=== PATIENT | male | born 1950 | race Caucasian/White ===

== ENCOUNTER 2024-01-13 03:13 | Inpatient (IN) | payer BC ==
[2024-01-13] MEDS ORDERED: NITROGLYCERIN SL TABS 0.4 MG TAB SUBLINGUAL PRN ×2 (03:21→10:39)
--- NOTE | 2024-01-13 03:25 | ED ---
Chest Pain HPI - General Chief Complaint: Chest Pain Stated Complaint: Chest pain Time Seen by Provider: 01/13/24 03:15 Source: patient, EMS, RN notes reviewed, old records reviewed Mode of arrival: EMS Limitations: no limitations - History of Present Illness Initial Comments: This is a 73-year-old male to the ER today. He presents today for evaluation of chest pain, he is excepted in transfer from outside facility, [facility] where he was presenting for chest pain and found to have elevated troponin. Patient has persistent chest pain here in the ER no shortness of breath no recent travel history or sick contacts. Patient has no other complaints MD Complaint: chest pain -: days(s) Onset: during rest, during exertion Pain Location: left chest Pain Radiation: LUE Severity: mild Severity scale (1-10): 4 Quality: aching Consistency: constant Improves With: nothing Worsens With: nothing Anginal Symptoms: dyspnea Other Symptoms: palpitations Treatments Prior to Arrival: none - Related Data Home Medications Medication Instructions Recorded Confirmed Zolpidem [Ambien] 10 mg PO HS 01/13/24 01/13/24 Previous Rx's Medication Instructions Recorded Aspirin 81 mg PO DAILY #30 tab 01/15/24 Atorvastatin [Lipitor] 80 mg PO DAILY #30 tab 01/15/24 Isosorbide Mononitrate ER [Imdur] 15 mg PO DAILY #30 tab 01/15/24 Losartan [Cozaar] 25 mg PO DAILY #30 tab 01/15/24 Nitroglycerin Sl Tabs [Nitrostat] 0.4 mg SUBLINGUAL Q5M PRN #30 tab 01/15/24 Ticagrelor [Brilinta] 90 mg PO BID #60 tab 01/15/24 Allergies Allergy/AdvReac Type Severity Reaction Status Date / Time No Known Allergies Allergy Verified 01/13/24 10:53 Review of Systems ROS Statement: Those systems with pertinent positive or pertinent negative responses have been documented in the HPI. ROS Other: All systems not noted in ROS Statement are negative. EKG Findings - EKG Comments: EKG Findings:: EKG sinus pericardia 50 UT 214 QRS 147 QTc 425 - EKG Results: EKG: interpreted by RON Past Medical History Past Medical History: Hyperlipidemia, Hypertension History of Any Multi-Drug Resistant Organisms: None Reported Past Surgical History: Hernia Repair Past Psychological History: No Psychological Hx Reported Smoking Status: Former smoker Past Alcohol Use History: Rare Past Drug Use History: None Reported - Past Family History Father Family Medical History: COPD Mother Family Medical History: Diabetes Mellitus General Exam Limitations: no limitations General appearance: alert, in no apparent distress, anxious Head exam: Present: atraumatic, normocephalic, normal inspection Eye exam: Present: normal appearance, PERRL, EOMI. Absent: scleral icterus, conjunctival injection, periorbital swelling ENT exam: Present: normal exam, mucous membranes moist Neck exam: Present: normal inspection. Absent: tenderness, meningismus, lymphadenopathy Respiratory exam: Present: normal lung sounds bilaterally. Absent: respiratory distress, wheezes, rales, rhonchi, stridor Cardiovascular Exam: Present: normal rhythm, bradycardia, normal heart sounds. Absent: systolic murmur, diastolic murmur, rubs, gallop, clicks GI/Abdominal exam: Present: soft, normal bowel sounds. Absent: distended, tenderness, guarding, rebound, rigid Extremities exam: Present: normal inspection, full ROM, normal capillary refill. Absent: tenderness, pedal edema, joint swelling, calf tenderness Back exam: Present: normal inspection Neurological exam: Present: alert, oriented X3, CN II-XII intact Psychiatric exam: Present: normal affect, normal mood Skin exam: Present: warm, dry, intact, normal color. Absent: rash Course Vital Signs 01/13/24 01/13/24 03:14 04:00 Temperature 98.0 F Pulse Rate 51 L 48 L Respiratory 18 18 Rate Blood Pressure 121/79 109/73 O2 Sat by Pulse 94 L 93 L Oximetry - Reevaluation(s) Reevaluation #1: 01/13/24 03:24 Records reviewed transferring paperwork is also been reviewed Reevaluation #2: 01/13/24 03:24 Remains with chest pain here in the ER Reevaluation #3: 01/13/24 03:24 22 results questions answered Reevaluation #4: Was pt. sent in by a medical professional or institution (, PA, CLINICAL INFORMATICS SPEC, urgent care, hospital, or alf...) When possible be specific @ -no Did you speak to anyone other than the patient for history (EMS, parent, family, police, friend...)? What history was obtained from this source @ -no Did you review nursing and triage notes (agree or disagree)? Why? @ -agree Are old charts reviewed (outside hosp., previous admission, EMS record, old EKG, old radiological studies, urgent care reports/EKG's, alf records)? Report findings @ -yes Differential Diagnosis (chest pain, altered mental status, abdominal pain women, abdominal pain men, vaginal bleeding, weakness, fever, dyspnea, syncope, headache, dizziness, GI bleed, back pain, seizure, CVA, palpatations, mental health, musculoskeletal)? @ -prior EKG interpreted by me (3pts min.). @ -yes X-rays interpreted by me (1pt min.). @ -yes negative for acute disease CT interpreted by me (1pt min.). @ -no U/S interpreted by me (1pt. min.). @ -no What testing was considered but not performed or refused? (CT, X-rays, U/S, labs)? Why? @ -none What meds were considered but not given or refused? Why? @ -none Did you discuss the management of the patient with other professionals (professionals i.e. , PA, CLINICAL INFORMATICS SPEC, lab, RT, psych nurse, health and social care teacher, sports director, teacher, emergency communications officer, counseling case manager)? Give summary @ -no Was smoking cessation discussed for >3mins.? @ -no Was critical care preformed (if so, how long)? @ -yes31 Were there social determinants of health that impacted care today? How? (Homelessness, low income, unemployed, alcoholism, drug addiction, transportation, low edu. Level, literacy, decrease access to med. care, intermediate, rehab)? @ -none Was there de-escalation of care discussed even if they declined (Discuss DNR or withdrawal of care, Hospice)? DNR status @ -no What co-morbidities impacted this encounter? (DM, HTN, Smoking, COPD, CAD, Cancer, CVA, ARF, Chemo, Hep., AIDS, mental health diagnosis, sleep apnea, morbid obesity)? @ -none Was patient admitted / discharged? Hospital course, mention meds given and route, prescriptions, significant lab abnormalities, going to OR and other pertinent info. @ - 73-year-old male ER for elevated troponin excepted in transfer from outside hospital. Patient will be admitted for non-ST elevation MD on heparin Undiagnosed new problem with uncertain prognosis? @ -no Drug Therapy requiring intensive monitoring for toxicity (Heparin, Nitro, Insulin, Cardizem)? @ -no Were any procedures done? @ -no Diagnosis/symptom? @ -Non-ST elevated MD Acute, or Chronic, or Acute on Chronic? @ -Acute Uncomplicated (without systemic symptoms) or Complicated (systemic symptoms)? @ -Complicated Side effects of treatment? @ -no Exacerbation, Progression, or Severe Exacerbation? @ -exacerbation Poses a threat to life or bodily function? How? (Chest pain, USA, MD, pneumonia, PE, COPD, DKA, ARF, appy, cholecystitis, CVA, Diverticulitis, Homicidal, Suicidal, threat to staff... and all critical care pts) @ -yes significant acute ACS Reevaluation #5: Differential Chest Pain: Stable Angina, Unstable Angina, STEMI, NSTEMI Aortic Dissection, Pneumothorax, Musculoskeletal, Esophageal Spasm GERD, Cholecystitis, Pancreatitis, Zoster, this is not meant to be an all-inclusive list. Chest Pain MDM - MDM 73-year-old male ER for elevated troponin excepted in transfer from outside hospital. Patient will be admitted for non-ST elevation MD on heparin Critical Care Time Critical Care Time: Yes Total Critical Care Time: 31 Disposition Clinical Impression: Chest pain, Acute non-ST elevation myocardial infarction (NSTEMI) Disposition: ADMITTED IP TO THIS HOSP Condition: Serious Is patient prescribed a controlled substance at d/c from ED?: No Time of Disposition: 03:30
[2024-01-13] MEDS: SODIUM CHLORIDE 0.9% 1,000 ML IV STA (03:33)
[2024-01-13] MEDS: HEPARIN SOD,PORK IN 0.45% NACL 25,000 UNIT in 0.45% NACL 1 250ML.BAG IV SCH (03:39)
[2024-01-13] MEDS: ASPIRIN 81 MG PO STA (03:40)
[2024-01-13 04:28] LABS: Basophils # (A) 0.1 k/uL (0-0.2); Basophils % (A) 1 %; Eosinophils # (A) 0.2 k/uL (0-0.7); Eosinophils % (A) 1 %; HCT 45.4 % (39.0-53.0); HGB 14.8 gm/dL (13.0-17.5); Lymphocytes # (A) 2.1 k/uL (1.0-4.8); Lymphocytes % (A) 17 %; MCH 32.1 pg (25.0-35.0); MCHC 32.6 g/dL (31.0-37.0); MCV 98.2 fL (80.0-100.0); Mean Platelet Volume 8.4; Monocytes % (A) 8 %; Neutrophils % (A) 72 %; Platelet Count 441 k/uL (150-450); RBC 4.62 m/uL (4.30-5.90); RDW 13.1 % (11.5-15.5); WBC 12.4 k/uL (3.8-10.6)
[2024-01-13 04:59] LABS: Prothrombin Time 10.6 sec (10.0-12.5)
[2024-01-13 05:02] LABS: Partial Thromboplastin Time 140.3 sec (22.0-30.0)
[2024-01-13 05:15] LABS: ALT 33 U/L (4-49); AST 29 U/L (17-59); African American GFR (CKD) >90 (>60 ml/min/1.73 sqM); Albumin 3.9 g/dL (3.5-5.0); Alkaline Phosphatase 87 U/L (38-126); Anion Gap 5 mmol/L; Blood Urea Nitrogen 21 mg/dL (9-20); Calcium 9.8 mg/dL (8.4-10.2); Carbon Dioxide 26 mmol/L (22-30); Chloride 103 mmol/L (98-107); Glucose 195 mg/dL (74-99); Magnesium 2.3 mg/dL (1.6-2.3); Non-African American GFR(CKD) 78 (>60 ml/min/1.73 sqM); Potassium 4.9 mmol/L (3.5-5.1); Sodium 134 mmol/L (137-145); Total Bilirubin 0.5 mg/dL (0.2-1.3); Total Protein 6.3 g/dL (6.3-8.2)
[2024-01-13 06:26] LABS: NT-Pro-B-Type Natriuretic Pept 2800 pg/mL
[2024-01-13] MEDS: ATORVASTATIN 80 MG TAB PO SCH (08:52)
[2024-01-13] MEDS ORDERED: ALPRAZolam 0.25 MG TAB PO PRN (10:39)
--- NOTE | 2024-01-13 10:39 | P.CRDCN ---
History of Present Illness Consult date: 01/13/24 History of present illness: HISTORY OF PRESENTING ILLNESS Patient presented to the hospital because of substernal chest pain that started on Sunday. On and off would get worse with activity get better with rest. Associated difficulty in breathing. Denies any diaphoresis lightheadedness dizziness or passing out. Does have prior history of hypertension and obesity p atient reports that his blood pressure is usually controlled. Patient denies any history of smoking, recreational drug use marijuana use or IV alcohol use Patient denies any prior history of cardiac complaints, diabetes, stroke, bleeding diathesis On admission troponin was elevated with mild uptrending pattern ECG shows sinus bradycardia with first-degree AV block, T wave inversion lead III and possible Q waves in V1 and V2 suggestive of posterior TN, age indeterminate REVIEW OF SYSTEMS 14 point review of system is negative except what is mentioned above in HPI. PHYSICAL EXAMINATION Vital signs reviewed. Head: Normocephalic. Eyes: Sclerae nonicteric. Neck: Brisk carotid upstroke, no jugular venous distention. Lungs: Clear to auscultation. Heart: Regular rate and rhythm, S1-S2, no S3, no murmur or rub. Abdomen: Soft nontender, positive bowel sounds. Extremities: No edema, intact distal pulses. Neuro: Alert, oritented, no focal deficits. Detailed neuro exam was not performed. ASSESSMENT NSTEMI Typical substernal chest pain Essential hypertension Obesity PLAN Continue aspirin 81 mg, IV heparin drip, Lipitor 80 mg Will not do beta-laurie due to low resting heart rate. Start losartan 25 mg and Imdur 15 mg for stable angina and hypertension Plan for cardiac authorization tomorrow Obtain echocardiogram Rolan Hurst MD, FACC, RPVI Thank you for allowing [facility] to participate in this patient's care. Feel free to reach out in case of any followup questions. Past Medical History Past Medical History: Hyperlipidemia, Hypertension History of Any Multi-Drug Resistant Organisms: None Reported Past Surgical History: Hernia Repair, Orthopedic Surgery Additional Past Surgical History / Comment(s): Foot surgery when ran over by [employer] Past Anesthesia/Blood Transfusion Reactions: No Reported Reaction Past Psychological History: No Psychological Hx Reported Smoking Status: Former smoker Past Alcohol Use History: Rare Past Drug Use History: None Reported - Past Family History Father Family Medical History: COPD Mother Family Medical History: Diabetes Mellitus Medications and Allergies Home Medications Medication Instructions Recorded Confirmed Type atenoloL 25 mg PO DAILY 01/13/24 01/13/24 History atenoloL [Tenormin] 50 mg PO DAILY 01/13/24 01/13/24 History Allergies Allergy/AdvReac Type Severity Reaction Status Date / Time No Known Allergies Allergy Verified 01/13/24 03:18 Physical Exam Vitals: Vital Signs Temp Pulse Pulse Resp BP BP Pulse Ox 01/13/24 08:00 97.8 F 51 L 18 135/82 97 01/13/24 04:38 97.5 F L 50 L 18 144/82 96 01/13/24 04:29 97.7 F 48 L 18 130/82 97 01/13/24 04:00 48 L 18 109/73 93 L 01/13/24 03:14 98.0 F 51 L 18 121/79 94 L Intake and Output 01/12/24 01/13/24 01/13/24 22:59 06:59 14:59 Intake Total 14 Balance 14 Intake: Intake, IV Titration 14 Amount Heparin Sod,Pork in 0.45% 14 NaCl 25,000 unit In 0.45 % NaCl 1 250ml.bag @ 10. 65 UNITS/KG/HR 10 mls/hr IV .Q24H [facility] Rx#: [id number] Other: Weight 93.894 kg Results 01/13/24 03:21 01/13/24 03:21 Cardiac Enzymes 01/13/24 01/13/24 01/13/24 Range/Units 03:21 03:21 06:14 AST 29 (17-59) U/L Troponin I 0.284 H* 0.301 H* (0.000-0.034) ng/mL 01/13/24 Range/Units 08:46 AST (17-59) U/L Troponin I 0.282 H* (0.000-0.034) ng/mL Coagulation 01/13/24 Range/Units 03:21 PT 10.6 (10.0-12.5) sec APTT 140.3 H* (22.0-30.0) sec CBC 01/13/24 Range/Units 03:21 WBC 12.4 H (3.8-10.6) k/uL RBC 4.62 (4.30-5.90) m/uL Hgb 14.8 (13.0-17.5) gm/dL Hct 45.4 (39.0-53.0) % Plt Count 441 (150-450) k/uL Comprehensive Metabolic Panel 01/13/24 Range/Units 03:21 Sodium 134 L (137-145) mmol/L Potassium 4.9 (3.5-5.1) mmol/L Chloride 103 (98-107) mmol/L Carbon Dioxide 26 (22-30) mmol/L BUN 21 H (9-20) mg/dL Creatinine 0.97 (0.66-1.25) mg/dL Glucose 195 H (74-99) mg/dL Calcium 9.8 (8.4-10.2) mg/dL AST 29 (17-59) U/L ALT 33 (4-49) U/L Alkaline Phosphatase 87 (38-126) U/L Total Protein 6.3 (6.3-8.2) g/dL Albumin 3.9 (3.5-5.0) g/dL Current Medications Generic Name Dose Route Start Last Admin Trade Name Freq PRN Reason Stop Dose Admin Aspirin 325 mg 01/14/24 09:00 Aspirin 325 Mg Tab PO DAILY [facility] Aspirin 81 mg 01/14/24 09:00 Aspirin 81 Mg PO DAILY [facility] Atorvastatin Calcium 80 mg 01/13/24 09:00 01/13/24 08:52 Atorvastatin 80 Mg Tab PO Not Given DAILY [facility] Sodium Chloride 1,000 mls @ 100 mls/hr 01/13/24 03:21 01/13/24 03:33 Saline 0.9% IV 01/13/24 13:20 100 mls/hr .Q10H [facility] Administration Heparin Sodium/Sodium Chloride 250 mls @ 10 mls/hr 01/13/24 03:30 01/13/24 06:07 25,000 unit/ Sodium Chloride IV 7.65 units/kg/hr .Q24H TK 7.183 mls/hr Titration Protocol 10.65 UNITS/KG/HR Isosorbide Mononitrate 15 mg 01/13/24 10:45 Isosorbide Mononitrate Er 15 Mg Tab PO DAILY [facility] Losartan Potassium 25 mg 01/13/24 10:45 Losartan 25 Mg Tab PO DAILY [facility] Morphine Sulfate 4 mg 01/13/24 03:21 Morphine Sulfate 4 Mg/Ml Syringe IV Q6HR PRN Chest Pain Nitroglycerin 0.4 mg 01/13/24 03:21 Nitroglycerin Sl Tabs 0.4 Mg Tab SUBLINGUAL Q5M PRN Chest Pain Intake and Output 01/12/24 01/13/24 01/13/24 22:59 06:59 14:59 Intake Total 14 Balance 14 Intake: Intake, IV Titration 14 Amount Heparin Sod,Pork in 0.45% 14 NaCl 25,000 unit In 0.45 % NaCl 1 250ml.bag @ 10. 65 UNITS/KG/HR 10 mls/hr IV .Q24H [facility] Rx#: [id number] Other: Weight 93.894 kg 01/13/24 03:21 01/13/24 03:21
--- NOTE | 2024-01-13 12:08 | P.HPIM ---
History of Present Illness H&P Date: 01/13/24 Chief Complaint: Chest pain 73-year-old male presented to the emergency department because of 2 days history of intermittent chest pain, worsening with exertion. Relieved by rest. Pain feels like a pressure. Associated with shortness of breath and feeling of imbalance. Denies diaphoresis, nausea or vomiting. Denies fevers or chills, no recent illness. No history of heart disease. No family history of heart disease. Has history of hypertension and takes medication for it that he does not recall. In the emergency department he was found to have elevated troponin level at 0.3. He was initiated on heparin drip for suspected non-ST elevation myocardial infarction and was admitted to [facility] for further evaluation by cardiology. Review of Systems Complete review of system performed, pertinent positives per HPI, otherwise negative Past Medical History Past Medical History: Hyperlipidemia, Hypertension History of Any Multi-Drug Resistant Organisms: None Reported Past Surgical History: Hernia Repair, Orthopedic Surgery Additional Past Surgical History / Comment(s): Foot surgery when ran over by [employer] Past Anesthesia/Blood Transfusion Reactions: No Reported Reaction Past Psychological History: No Psychological Hx Reported Smoking Status: Former smoker Past Alcohol Use History: Rare Past Drug Use History: None Reported - Past Family History Father Family Medical History: COPD Mother Family Medical History: Diabetes Mellitus Medications and Allergies Home Medications Medication Instructions Recorded Confirmed Type Zolpidem [Ambien] 10 mg PO HS 01/13/24 01/13/24 History atenoloL 25 - 75 mg PO DAILY PRN 01/13/24 01/13/24 History Allergies Allergy/AdvReac Type Severity Reaction Status Date / Time No Known Allergies Allergy Verified 01/13/24 10:53 Physical Exam Vitals: Vital Signs Temp Pulse Pulse Resp BP BP Pulse Ox 01/13/24 08:00 97.8 F 51 L 18 135/82 97 01/13/24 04:38 97.5 F L 50 L 18 144/82 96 01/13/24 04:29 97.7 F 48 L 18 130/82 97 01/13/24 04:00 48 L 18 109/73 93 L 01/13/24 03:14 98.0 F 51 L 18 121/79 94 L Intake and Output 01/12/24 01/13/24 01/13/24 22:59 06:59 14:59 Intake Total 14 Balance 14 Intake: Intake, IV Titration 14 Amount Heparin Sod,Pork in 0.45% 14 NaCl 25,000 unit In 0.45 % NaCl 1 250ml.bag @ 10. 65 UNITS/KG/HR 10 mls/hr IV .Q24H [facility] Rx#: [id number] Other: Weight 93.894 kg Constitutional: No acute distress, conversant, pleasant Eyes: Anicteric sclerae, moist conjunctiva, no lid-lag Pupils equal round reactive to light ENMT: NC/AT Oropharynx clear, no erythema, exudates Neck: Supple, FROM, no masses, or JVD No carotid bruits No thyromegaly Lungs: Clear to auscultation Clear to percussion Normal respiratory effort, no accessory muscle use Cardiovascular: Heart regular in rate and rhythm, No murmurs, gallops, or rubs No peripheral edema Abdominal: Soft Nontender, no guarding, rebound or rigidity Abdomen moving with respiration Normoactive bowel sounds No hepatomegaly, No splenomegaly No palpable mass No abdominal wall hernia noted Skin: Normal temperature, tone, texture, turgor No induration No subcutaneous nodules No rash, lesions No ulcers Extremities: No digital cyanosis No clubbing Pedal pulses intact and symmetrical Radial pulses intact and symmetrical No calf tenderness Psychiatric: Alert and oriented to person, place and time Appropriate affect fair judgement Neuro Muscles Strength 5/5 in all 4 extremities Sensation to light touch grossly present throughout Cranial nerves II-XII grossly intact No focal sensory deficits Lymphatics: no palpable cervical or supraclavicular , or inguinal lymph nodes Results CBC & Chem 7: 01/13/24 03:21 01/13/24 03:21 Labs: Abnormal Lab Results - Last 24 Hours (Table) 01/13/24 01/13/24 01/13/24 Range/Units 03:21 03:21 03:21 WBC 12.4 H (3.8-10.6) k/uL Neutrophils # 9.0 H (1.3-7.7) k/uL APTT 140.3 H* (22.0-30.0) sec Sodium 134 L (137-145) mmol/L BUN 21 H (9-20) mg/dL Glucose 195 H (74-99) mg/dL Troponin I (0.000-0.034) ng/mL 01/13/24 01/13/24 01/13/24 Range/Units 03:21 06:14 08:46 WBC (3.8-10.6) k/uL Neutrophils # (1.3-7.7) k/uL APTT (22.0-30.0) sec Sodium (137-145) mmol/L BUN (9-20) mg/dL Glucose (74-99) mg/dL Troponin I 0.284 H* 0.301 H* 0.282 H* (0.000-0.034) ng/mL Thrombosis Risk Factor Assmnt - Choose All That Apply Any of the Below Risk Factors Present?: Yes Each Factor Represents 1 point: Obesity (BMI >25) Each Risk Factor Represents 2 Points: Age 61-74 years Other congenital or acquired thrombophilia - If yes, enter type in comment: No Thrombosis Risk Factor Assessment Total Risk Factor Score: 3 Thrombosis Risk Factor Assessment Level: Moderate Risk Assessment and Plan Plan: Non-ST elevation myocardial infarction Continue aspirin 81 mg, IV heparin drip, Lipitor 80 mg No beta-laurie due to low resting heart rate. Start losartan 25 mg and Imdur 15 mg Cardiology evaluation, plan for cardiac authorization tomorrow Obtain echocardiogram Essential hypertension Obesity Stable Monitor blood pressure CODE STATUS full Admitted to inpatient, expected length of stay more than 2 midnights Anticipate discharge: 2 days.
[2024-01-13] MEDS: ISOSORBIDE MONONITRATE ER 15 MG TAB PO SCH (12:38)
[2024-01-13] MEDS: LOSARTAN 25 MG TAB PO SCH (12:38)
[2024-01-14] MEDS: SODIUM CHLORIDE 0.9% 1,000 ML in EMPTY BAG 1 BAG IV SCH ×2 (05:10→22:45)
[2024-01-14] MEDS: ASPIRIN 81 MG PO SCH (06:38)
[2024-01-14] MEDS ORDERED: ASPIRIN 325 MG TAB PO SCH (09:00)
[2024-01-14] MEDS: ATORVASTATIN 80 MG TAB ONE (11:34)
[2024-01-14] MEDS: ACETAMINOPHEN TAB 325 MG TAB ONE (11:34)
[2024-01-14] MEDS: ASPIRIN 81 MG ONE (11:35)
[2024-01-14 12:22] LABS: Chol/HDL Ratio 5.21 Ratio; LDL Cholesterol,Calculated 118.9 mg/dL (0.0-131.0)
[2024-01-14] MEDS ORDERED: fentaNYL (PF) 50 MCG/ML 2 ML AMP ONE (13:29)
[2024-01-14] MEDS: fentaNYL (PF) 50 MCG/1 ML VIAL IVP ONE ×2 (13:33)
[2024-01-14] MEDS: IV FLUID CONTINUATION 1,000 ML IV ONE (13:33)
[2024-01-14] MEDS: MIDAZOLAM 2 MG/2 ML VIAL IVP ONE ×2 (13:33→17:31)
[2024-01-14] MEDS: VERAPAMIL SYRINGE (5 MG/10 ML) INTRAARTER ONE (13:37)
[2024-01-14] MEDS: LIDOCAINE 1% INJ 10MG/ML (30 ML VIAL-PF) SQ ONE (13:37)
--- NOTE | 2024-01-14 14:01 | CA ---
Transthoracic Echo Report Name: Lisandro Meyer Age: 73 Gender: M : 1950 Exam Date: 01/14/2024 10:22 Exam Location: [place] [facility] Ht (in): 72 Wt (lb): 207 Ordering Physician: Rolan Hurst MD ([id number]) Attending/Referring Phys: Sewer Repairer Jessica Wylie RDCS Procedure CPT: Indications: NSTEMI look for WMA Cardiac Hx: Technical Quality: Fair Contrast 1: Total Dose (mL): Contrast 2: Total Dose (mL): MEASUREMENTS (Male / Female) Normal Values 2D ECHO LV Diastolic Diameter PLAX 4.2 cm 4.2 - 5.9 / 3.9 - 5.3 cm LV Systolic Diameter PLAX 2.6 cm IVS Diastolic Thickness 1.4 cm 0.6 - 1.0 / 0.6 - 0.9 cm LVPW Diastolic Thickness 1.9 cm 0.6 - 1.0 / 0.6 - 0.9 cm LV Relative Wall Thickness 0.8 RV Internal Dim ED PLAX 4.3 cm LA Volume 46.3 cm??? 18 - 58 / 22 - 52 cm??? LA Volume Index 21.1 cm???/m??? 16 - 28 cm???/m??? M-MODE Aortic Root Diameter MM 3.1 cm LA Systolic Diameter MM 4.3 cm LA Ao Ratio MM 1.4 AV Cusp Separation MM 2.1 cm DOPPLER AV Peak Velocity 90.3 cm/s AV Peak Gradient 3.3 mmHg AV Mean Velocity 66.9 cm/s AV Mean Gradient 1.9 mmHg AV Velocity Time Integral 20.9 cm LVOT Peak Velocity 75.0 cm/s LVOT Peak Gradient 2.2 mmHg LVOT Velocity Time Integral 21.0 cm MV Area PHT 4.5 cm??? Mitral E Point Velocity 67.7 cm/s Mitral A Point Velocity 73.9 cm/s Mitral E to A Ratio 0.9 MV Deceleration Time 167.1 ms MV E' Velocity 6.1 cm/s Mitral E to MV E' Ratio 11.0 TR Peak Velocity 141.8 cm/s TR Peak Gradient 8.0 mmHg Right Ventricular Systolic Press 12.9 mmHg FINDINGS Left Ventricle Moderately increased left ventricular wall thickness. Left ventricular cavity size normal. Normal left ventricular systolic function with no obvious regional wall motion abnormalities. Left ventricular ejection fraction is estimated at 55-60 %. Grade 1 diastolic dysfunction. Right Ventricle Right ventricular dilatation. Right ventricular systolic pressure within normal limits. Right Atrium Normal right atrial size. Left Atrium Normal left atrial size. Mitral Valve Structurally normal mitral valve. Mild mitral regurgitation. Aortic Valve Trileaflet aortic valve. No aortic valve stenosis or regurgitation. Aortic valve sclerosis. Tricuspid Valve Structurally normal tricuspid valve. Mild tricuspid regurgitation. Pulmonic Valve Structurally normal pulmonic valve. Trace pulmonic regurgitation. Pericardium No pericardial effusion. Aorta Normal size aortic root and proximal ascending aorta. CONCLUSIONS Left ventricular ejection fraction 55-60% Moderately increased left ventricular wall thickness Mild mitral regurgitation Mild tricuspid regurgitation No pericardial effusion Previewed by: Dr. Domenico Mullins DO (Electronically Signed) Final Date: 14 January 2024 14:01
[2024-01-14] MEDS ORDERED: HEPARIN SODIUM 1,000 UN/ML (10ML VL) ONE ×2 (14:09→17:31)
[2024-01-14] MEDS ORDERED: TICAGRELOR 90 MG TAB ONE (14:11)
[2024-01-14] MEDS: HEPARIN SODIUM 1,000 UN/ML (10ML VL) IVP ONE ×2 (14:14→17:35)
[2024-01-14] MEDS: IOPAMIDOL-370 200ML BTL INJ ONE ×3 (14:15→17:50)
[2024-01-14] MEDS: TICAGRELOR 90 MG TAB PO ONE (14:15)
--- NOTE | 2024-01-14 14:17 | P.PN ---
Subjective Progress Note Date: 01/14/24 Principal diagnosis: Chest pain patient had exertional CP while showering. Relieved when he rested. No sob. No dizziness. No other overnight events. Objective - Vital Signs Vital signs: Vital Signs Temp 97.5 F L 01/14/24 07:49 Pulse 50 L 01/14/24 12:09 Resp 18 01/14/24 07:49 BP 110/42 01/14/24 07:49 Pulse Ox 95 01/14/24 07:49 FiO2 Intake & Output 01/13/24 01/14/24 01/14/24 18:59 06:59 18:59 Intake Total 399.851 410.733 Balance 399.851 410.733 Weight 93.6 kg Intake: Intake, IV Titration 45.851 410.733 Amount Heparin Sod,Pork in 0.45% 45.851 185.733 NaCl 25,000 unit In 0.45 % NaCl 1 250ml.bag @ 10. 65 UNITS/KG/HR 10 mls/hr IV .Q24H TK Rx#: [id number] Sodium Chloride 0.9% 1, 225 000 ml In Empty Bag 1 bag @ 75 mls/hr IV .[id number] TK Rx#:[id number] Oral 354 Other: Voiding Method Toilet # Voids 2 - Exam Constitutional: No acute distress, conversant, pleasant Eyes:Anicteric sclerae, moist conjunctiva, no lid-lag, PERRLA, ENMT: Oropharynx clear, no erythema, exudates Neck: Supple, FROM, no masses, or JVD, No carotid bruits, No thyromegaly Lungs: Clear to auscultation, Clear to percussion, Normal respiratory effort, no accessory muscle use Cardiovascular: Heart regular in rate and rhythm, No murmurs, gallops, or rubs, No peripheral edema Abdominal: Soft, Nontender, no guarding, rebound or rigidity, Normoactive bowel sounds, No hepatomegaly, No splenomegaly, No palpable mass Skin: Normal temperature, tone, texture, turgor, no induration, No subcutaneous nodules, No rash, lesions, No ulcers Extremities: No digital cyanosis, No clubbing, Pedal pulses intact and symmetrical, Radial pulses intact and symmetrical, No calf tenderness Psychiatric: Alert and oriented to person, place and time, appropriate affect, intact judgement Neuro: Muscles Strength 5/5 in all 4 extremities, Sensation to light touch grossly present throughout, Cranial nerves II-XII grossly intact, no focal sensory deficits - Labs CBC & Chem 7: 01/13/24 03:21 01/13/24 03:21 Labs: Abnormal Lab Results - Last 24 Hours (Table) 01/13/24 01/14/24 01/14/24 Range/Units 17:33 00:28 06:29 APTT 36.8 H 50.1 H (22.0-30.0) sec Triglycerides 242.00 H (0.00-149.00) mg/dL Cholesterol 207.00 H (0.00-200.00) mg/dL VLDL Cholesterol, Calc 48.40 H (5.00-40.00) mg/dL HDL Cholesterol 39.70 L (40.00-60.00) mg/dL 01/14/24 Range/Units 06:29 APTT 48.8 H (22.0-30.0) sec Triglycerides (0.00-149.00) mg/dL Cholesterol (0.00-200.00) mg/dL VLDL Cholesterol, Calc (5.00-40.00) mg/dL HDL Cholesterol (40.00-60.00) mg/dL Assessment and Plan Plan: Non-ST elevation myocardial infarction Continue aspirin 81 mg, IV heparin drip, Lipitor 80 mg No beta-laurie due to low resting heart rate. Start losartan 25 mg and Imdur 15 mg Cardiology following, planning cardiac catheterization today Echocardiogram showed normal ejection fraction with grade 1 diastolic dysfunction, otherwise normal. Essential hypertension Obesity Stable Monitor blood pressure CODE STATUS full Anticipate discharge: 1-2 days.
--- NOTE | 2024-01-14 14:32 | P.CARDCATH ---
Date of Procedure: 01/14/24 Description of Procedure: DIAGNOSTIC CORONARY ANGIOGRAPHY and LEFT HEART CATH REPORT PROCEDURES PERFORMED: Left heart catheterization Selective coronary angiography Moderate conscious sedation 34 mins Right radial access Right radial artery angiogram, right subclavian artery angiogram Right common femoral access Right common femoral arteriogram INDICATION: NSTEMI 73-year-old with PMH of hypertension and obesity presented to hospital because of substernal chest pain. He had elevated troponins with uptrending pattern. His ECG showed concerns of possible Q waves in V1 V2 along with T wave inversions in inferior lead suggestive of inferoposterior ischemia. For this he was scheduled for heart catheterization procedure. CONSENT: I have discussed the risks, benefits and alternative therapies for the above-mentioned procedure, sedation/analgesia and necessary blood product administration (if indicated, as they pertain to this patient). The patient has indicated understanding and acceptance of the risks and procedures discussed. Conscious Sedation: Patient's ECG, heart rate, blood pressure, pulse oximetry was monitored throughout the duration of procedure under the direct supervision. 2 mg Versed and 75 mg Fentanyl were used for induction of moderate conscious sedation. Total duration of 34 minutes. PROCEDURE:After the risks, benefits and alternatives of the above mentioned procedure explained in detail with the patient, informed consent was obtained. Patient was taken to the catheterization lab and prepped and draped in usual sterile fashion. Right radial artery was identified using palpation method and 1% lidocaine was infiltrated over the rate. Using modified Seldinger technique a 6 Beninese slender glide sheath was advanced in the right radial artery and was flushed. A J-wire was advanced but there was resistance noticed at the elbow level. Using JR4 catheter renal artery angiogram was performed. There was noticed tortuosity at the elbow level in the radial artery for which the J-wire was exchanged for a Glidewire. The Glidewire was passed easily into the brachial artery and the JR4 catheter was advanced. At the level of right subclavian artery anastomosis with aortic arch there was significant tortuosity and the JR4 catheter could not be advanced in the aortic arch. Therefore the decision was made to terminate the radial approach and start with a right femoral approach. Ultrasound was used to identify the right common femoral artery. 1% lidocaine was infiltrated over the right common femoral artery. Using ultrasound arterial access was obtained using micropuncture needle. A 6-Beninese sheath was placed in the right coomon femoral artery using modified Seldinger technique. J tipped wire was advanced under fluoroscopic guidance. Over the wire JL4 diagnostic catheter was advanced. Wire was removed, catheter was flushed and manipulated under fluoroscopy to selectively engaged the left coronary ostium. Left coronary angioplasty was performed in different angiographic projections. This catheter was exchanged for a JR4 diagnostic catheter over the wire. The catheter was flushed and manipulated to cross the aortic valve. LV pressures were obtained. Pullback was performed across aortic valve and catheter was manipulated to selectively engage the right coronary ostium under fluoroscopic guidance. Right coronary angiography was performed in different angiographic projections. Catheter was removed over the wire. Femoral sheath was flushed. Decision was made to proceed with intervention of RCA with Dr. Gu. The radial sheath was removed and the TR band was placed. The femoral sheath was sutured in place. 180 mg of Brilinta were administered and 4000 units of IV heparin was administered HEMODYNAMICS: Aortic Pressure: 126/61 mmHg. LV pressure: 126/0 mmHg. LVEDP 15 mmHg. SELECTIVE CORONARY ARTERIOGRAPHY: LEFT MAIN: The left main is a large caliber vessel which bifurcates into the LAD and circumflex. Left main appears angiographically normal. LEFT ANTERIOR DESCENDING CORONARY ARTERY: Proximal LAD appears angiographically normal. Mid LAD after giving diagonal 1 branch has 30% luminal irregularities. Diagonal 1 has around 60% disease involving the ostium and the proximal segment. It is a small caliber vessel 1.5 mm. Diagonal 2 is a large-caliber vessel and is tortuous and appears angiographically patent. Distal LAD after giving second diagonal is a small caliber and terminates before reaching the apex. Distal LAD is angiographically patent. LEFT CIRCUMFLEX CORONARY ARTERY: It is nondominant vessel. Proximal LCx is tortuous. It gives rise to a high OM1 branch which is a very small caliber vessel and has around 40 to 50% ostial disease. Second OM has 40%-50% disease in proximal segment, otherwise it is patent. After giving second OM, LCx is a AV groove vessel and a third OM branch and appears angiographically patent with 20% diffuse luminal irregularities. RIGHT CORONARY ARTERY: Dominant vessel. Proximal RCA has 95% stenosis. Mid RCA appears patent. Distal RCA prior to bifurcation of PDA and PL branch has ulcerated tubular 50 to 60% stenosis. PDA and PL branch appears moderate caliber. Proximal PDA has 30 to 40% luminal irregularities. PDA has JORDY I flow. IMPRESSION: 95% proximal RCA stenosis. JORDY I flow in PDA 50 to 60% ulcerated tubular distal RCA stenosis Moderate proximal diagonal 1 disease, small vessel Moderate proximal OM 2 disease, small vessel Normal left sided filling pressures PLAN: 4000 units of heparin, 180 mg of Brilinta Plan for PCI with Dr. Gu. Not on beta-laurie due to low resting heart rate Further recommendations to follow. Anticipate PCI of distal RCA and proximal RCA. Performing Physician Rolan Hurst MD FACC, RPVI Thank you for allowing [facility] to participate in this patient's care. Feel free to reach out in case of any followup questions.
[2024-01-14] MEDS ORDERED: LIDOCAINE 1% INJ 10MG/ML (20 ML MDV) ONE (16:28)
[2024-01-14] MEDS: IV FLUID CONTINUATION 400 ML IV ONE (16:35)
[2024-01-14] MEDS: HEPARIN SODIUM,PORCINE 10,000 UNIT in SODIUM CHLORIDE 0.9% 1,000 ML IRRIGATION PRN (17:40)
[2024-01-14] MEDS: HEPARIN SODIUM,PORCINE (1 ML) 2,500 UNIT in SODIUM CHLORIDE 0.9% 250 ML IRRIGATION PRN (17:40)
[2024-01-14] MEDS: NITROGLYCERIN 1000MCG/10ML SYRINGE INTRACORON ONE (17:41)
[2024-01-14] MEDS ORDERED: ZOLPIDEM 5 MG TAB PO PRN (17:54)
[2024-01-14] MEDS ORDERED: NITROGLYCERIN SL TABS 0.4 MG TAB SUBLINGUAL PRN (17:54)
[2024-01-14] MEDS ORDERED: RX INFO: IV CONTRAST WAS GIVEN 1 EACH MISC MISCELLANE PRN (17:54)
[2024-01-14] MEDS ORDERED: ATROPINE SULFATE 0.1 MG/ML 10ML SYRINGE IV PRN (17:54)
[2024-01-14] MEDS ORDERED: MAG HYDROX/AL HYDROX/SIMETH 30 ML CUP PO PRN (17:54)
--- NOTE | 2024-01-14 17:57 | P.PCN ---
Date of Procedure: 01/14/24 Operative Findings: PERCUTANEOUS CORONARY INTERVENTION Performing physician Barrett King M.D. Procedure Performed: 1. Successful stenting of the proximal RCA using 4.5 x 18 mm Xience drug- eluting stent with an excellent angiographic results. 2. Adjunctive use of IVUS 3. Selective right common femoral artery angiogram Indication: Acute coronary syndrome and subsequently a heart catheterization was performed and showed critical disease involving the proximal RCA Approach: Right common femoral artery Complications: None Level of Sedation: Moderate with a sedation length of 20 minutes Procedure Discussion: Please refer to diagnostic heart catheterization was performed earlier. Anticoagulation was initiated using heparin with continuous ACT monitoring. Subsequently I did engage the RCA is in JR4 guiding catheter. The RCA was wired using a run-through wire. Subsequently I did intravascular ultrasound which showed a diameter around 4.5 mm with predilatation was performed using 3.5 mm balloon before I deployed a 4.5 x 18 mm stent which was postdilated using 4.5 mm NC balloon with final angiogram showing excellent angiographic results. The procedure was completed with no complication Postprocedure Management: 1. Dual antiplatelet therapy using aspirin and Plavix for at least 12 months 2. Aggressive cholesterol control 3. Risk factors modification
[2024-01-14] MEDS: MORPHINE SULFATE 4 MG/ML SYRINGE IV PRN (19:09)
[2024-01-14] MEDS: TICAGRELOR 90 MG TAB PO SCH (22:26)
[2024-01-15 06:11] VITALS: RESP 18
[2024-01-15] MEDS ORDERED: HEPARIN SODIUM,PORCINE 10,000 UNIT in SODIUM CHLORIDE 0.9% 1,000 ML IRRIGATION PRN (07:00)
[2024-01-15] MEDS ORDERED: HEPARIN SODIUM,PORCINE (1 ML) 2,500 UNIT in SODIUM CHLORIDE 0.9% 250 ML IRRIGATION PRN (07:00)
[2024-01-15 08:51] VITALS: TEMP 97.8
[2024-01-15] MEDS: ACETAMINOPHEN TAB 325 MG TAB PO PRN (09:01)
[2024-01-15 09:30] LABS: Basophils # (A) 0.1 k/uL (0-0.2); Basophils % (A) 1 %; Eosinophils # (A) 0.1 k/uL (0-0.7); Eosinophils % (A) 1 %; HGB 15.5 gm/dL (13.0-17.5); Lymphocytes # (A) 1.7 k/uL (1.0-4.8); Lymphocytes % (A) 16 %; MCH 31.8 pg (25.0-35.0); MCHC 32.2 g/dL (31.0-37.0); MCV 98.8 fL (80.0-100.0); Mean Platelet Volume 7.7; Monocytes # (A) 0.9 k/uL (0-1.0); Monocytes % (A) 8 %; Neutrophils # (A) 7.8 k/uL (1.3-7.7); Neutrophils % (A) 73 %; Platelet Count 431 k/uL (150-450); RBC 4.86 m/uL (4.30-5.90); RDW 13.1 % (11.5-15.5); WBC 10.7 k/uL (3.8-10.6)
[2024-01-15 10:10] LABS: ALT 31 U/L (4-49); AST 36 U/L (17-59); African American GFR (CKD) >90 (>60 ml/min/1.73 sqM); Albumin 4.3 g/dL (3.5-5.0); Alkaline Phosphatase 69 U/L (38-126); Anion Gap 9 mmol/L; Blood Urea Nitrogen 16 mg/dL (9-20); Calcium 9.4 mg/dL (8.4-10.2); Carbon Dioxide 23 mmol/L (22-30); Chloride 105 mmol/L (98-107); Glucose 155 mg/dL (74-99); Magnesium 2.1 mg/dL (1.6-2.3); Non-African American GFR(CKD) 78 (>60 ml/min/1.73 sqM); Potassium 4.8 mmol/L (3.5-5.1); Sodium 137 mmol/L (137-145); Total Protein 6.6 g/dL (6.3-8.2)
--- NOTE | 2024-01-15 11:17 | P.PN ---
Subjective Progress Note Date: 01/15/24 73-year-old gentleman underwent cardiac catheterization by my associate Dr. Hurst yesterday had critical stenosis involving right coronary artery for which he underwent angioplasty with stent placement. This morning he is free of cardiac symptoms denies chest pain difficulty in breathing palpitations leg edema PND or orthopnea. An EKG shows sinus rhythm with first-degree AV block without any acute ST-T wave changes very similar to his baseline EKG. He is on aspirin Brilinta Imdur and Lipitor and I encouraged him to take these medications on discharge. Patient is reluctant to take some of his meds I explained to him the importance of taking medications regularly and taking all of them. Labs show that the hemoglobin is normal as is the creatinine. On exam he is comfortable at rest vital signs are stable chest exam reveals good air entry bilaterally heart exam reveals first and second heart sounds no gallop no murmur no rub abdomen is soft nontender exam extremities did not reveal any edema peripheral pulses are felt right groin exam reveals ecchymosis without any hematoma or pulsatile masses foot pulses are intact. Assessment and plan: Coronary artery disease s/p angioplasty of right coronary artery Plan patient is doing well reviewed EKG and the medications that the patient is on from cardiac standpoint he is stable for discharge and follow-up with Dr. Hurst in the week Objective - Vital Signs Vital signs: Vital Signs Temp 97.8 F 01/15/24 08:46 Pulse 89 01/15/24 08:46 Resp 18 01/15/24 08:46 BP 139/79 01/15/24 08:46 Pulse Ox 99 01/14/24 19:39 FiO2 Intake & Output 01/14/24 01/15/24 01/15/24 18:59 06:59 18:59 Intake Total 500 20 360 Output Total 700 900 Balance -200 -880 360 Weight 92.8 kg Intake: IV 500 20 Invasive Line 1 10 Invasive Line 2 10 Oral 360 Output: Urine 700 900 Other: Voiding Method Urinal Urinal # Voids 2 - Labs CBC & Chem 7: 01/15/24 08:49 01/15/24 08:49 Labs: Abnormal Lab Results - Last 24 Hours (Table) 01/14/24 01/15/24 01/15/24 Range/Units 06:29 08:49 08:49 WBC 10.7 H (3.8-10.6) k/uL Neutrophils # 7.8 H (1.3-7.7) k/uL Glucose 155 H (74-99) mg/dL Triglycerides 242.00 H (0.00-149.00) mg/dL Cholesterol 207.00 H (0.00-200.00) mg/dL VLDL Cholesterol, Calc 48.40 H (5.00-40.00) mg/dL HDL Cholesterol 39.70 L (40.00-60.00) mg/dL
[2024-01-15 12:06] VITALS: BP 133/72; PULSE 67
--- NOTE | 2024-01-15 13:40 | P.DS ---
Providers Date of admission: 01/13/24 03:23 Expected date of discharge: 01/15/24 Attending physician: Ethan Jauregui MD Consults: 01/13/24 03:21 Consult Physician Routine Consulting Provider: Maryjane Zimmerman Consult Reason/Comments: nSTEMI Do you want consulting provider notified?: Yes 01/14/24 17:54 Consult Physician Routine Consulting Provider: [facility] Consult Reason/Comments: Post Interventional Patient Do you want consulting provider notified?: Already Contacted Primary care physician: Morales Smith DO Hospital Course: 73 year old M with PMH of HTN, HLD presents to the ED for exertional chest pain and SOB since Sunday. In the ED he underwent extensive evaluation. BP 121/79, HR 51, T 98F, RR 18, 94% on RA. CBC, Coag panel, CMP significant for WBC 12.4, APTT 36.8, Na 145, BUN 21, glu 195. Mag 2.3. BNP 2800. Troponin 0.284, 0.301, 0.282. Started on Heparin drip. Cardiology consulted, Echo showed EF 55-60%, G1DD, moderate LV thickness, mild MR/TR. Underwent cardiac cath with PCI to RCA. 01/14 Patient was seen and examined. No chest pain or SOB. Cardiology has cleared the patient for discharge. CBC, CMP significant for WBC 10.7, glu 155. Lipid panel T. Chol 207, TG 242, LDL 118.9, HDL 39.7. Plans to discharge the patient on ASA, Imdur, Lipitor, Brilinta, Losartan. Stop Atenolol. Patient advised importance of medication compliance. Follow up with PCP within 1-2 days and Cardiology within 1 week of discharge. General: non toxic, no distress, appears at stated age Derm: warm, dry Head: atraumatic, normocephalic, symmetric Eyes: EOMI, no lid lag, anicteric sclera Mouth: no lip lesion, mucus membranes moist Cardiovascular: S1S2 amilcar, no murmur Lungs: CTA bilateral, no rhonchi, no rales , no accessory muscle use Ext: no gross muscle atrophy, no edema, no contractures Neuro: no focal neuro deficits Psych: Alert, oriented, appropriate affect Discharge Diagnosis: NSTEMI Sinus bradycardia Leukocytosis HTN HLD This complex discharge took 35 mintues to complete. Patient Condition at Discharge: Stable Plan - Discharge Summary Discharge Rx Participant: No New Discharge Prescriptions: New Aspirin 81 mg PO DAILY #30 tab Isosorbide Mononitrate ER [Imdur] 15 mg PO DAILY #30 tab Atorvastatin [Lipitor] 80 mg PO DAILY #30 tab Nitroglycerin Sl Tabs [Nitrostat] 0.4 mg SUBLINGUAL Q5M PRN #30 tab PRN Reason: Chest Pain Ticagrelor [Brilinta] 90 mg PO BID #60 tab Losartan [Cozaar] 25 mg PO DAILY #30 tab Continue Zolpidem [Ambien] 10 mg PO HS Discontinued atenoloL 25 - 75 mg PO DAILY PRN PRN Reason: HIGH BLOOD PRESSURE Discharge Medication List Zolpidem [Ambien] 10 mg PO HS 01/13/24 [History] Aspirin 81 mg PO DAILY #30 tab 01/15/24 [Rx] Atorvastatin [Lipitor] 80 mg PO DAILY #30 tab 01/15/24 [Rx] Isosorbide Mononitrate ER [Imdur] 15 mg PO DAILY #30 tab 01/15/24 [Rx] Losartan [Cozaar] 25 mg PO DAILY #30 tab 01/15/24 [Rx] Nitroglycerin Sl Tabs [Nitrostat] 0.4 mg SUBLINGUAL Q5M PRN #30 tab 01/15/24 [Rx] Ticagrelor [Brilinta] 90 mg PO BID #60 tab 01/15/24 [Rx] Follow up Appointment(s)/Referral(s): Rolan Hurst MD [Medical Doctor] - 1 Week (Office will call you for a follow up appointment. ) None,Stated [REFERRING] - 1-2 days Patient Instructions/Handouts: Heart Attack (DC), Chest Pain (DC), Heart Catheterization (DC) Activity/Diet/Wound Care/Special Instructions: Diet: Cardiac Discharge Disposition: HOME SELF-CARE
== END 2024-01-15 14:31 | disposition home or self-care (01) | DRG 322 ==
LOC: EC 03:13 → 3SCARD 03:23
PROVIDERS: ADMIT Internal Medicine; ATTEND Internal Medicine
PROC: B240ZZ3 Ultrasonography of Single Coronary Artery, Intravascular (ICD-10-PCS; principal; 2024-01-14 07:30)
PROC: 027034Z Dilation of Coronary Artery, One Artery with Drug-eluting Intraluminal Device, Percutaneous Approach (ICD-10-PCS; principal; 2024-01-14 07:30)
PROC: B2111ZZ Fluoroscopy of Multiple Coronary Arteries using Low Osmolar Contrast (ICD-10-PCS; 2024-01-14 21:40)
PROC: 4A023N7 Measurement of Cardiac Sampling and Pressure, Left Heart, Percutaneous Approach (ICD-10-PCS; 2024-01-14 21:40)
DX: I21.4 Non-ST elevation (NSTEMI) myocardial infarction (principal); E66.9 Obesity, unspecified; D72.829 Elevated white blood cell count, unspecified; E78.5 Hyperlipidemia, unspecified; I08.1 Rheumatic disorders of both mitral and tricuspid valves; R00.1 Bradycardia, unspecified; I10 Essential (primary) hypertension; I25.10 Atherosclerotic heart disease of native coronary artery without angina pectoris; I44.0 Atrioventricular block, first degree; Z79.02 Long term (current) use of antithrombotics/antiplatelets; Z79.82 Long term (current) use of aspirin; Z79.899 Other long term (current) drug therapy; Z87.891 Personal history of nicotine dependence; Z28.310 Unvaccinated for COVID-19; Z68.27 Body mass index [BMI] 27.0-27.9, adult
CPT/HCPCS: 36415; 80053; 80061; 83735; 83880; 84484; 85025; 85610; 85730; 92978; 93005; 93306; 93458; 96365; 99291